=== PATIENT | male | born 1955 | race Caucasian/White ===

== ENCOUNTER → 2025-03-25 13:32 | Outpatient (BNVA) | payer MEDICARE, SELFPAY | PROVIDERS: PCP Nurse Practitioner Primary Care; Referring Provider Nurse Practitioner Primary Care; Visit Provider Psychiatry & Neurology Neurology | DX: G62.9 Polyneuropathy, unspecified (principal); F10.10 Alcohol abuse, uncomplicated | CPT/HCPCS: 99203; 95908 ==